=== PATIENT | male | born 1990 | race Two or more races ===

== ENCOUNTER 2018-01-12 16:23 | Emergency (ER) | payer OTHER ==
[2018-01-12 16:28] VITALS: BP 118/70; PULSE 65; TEMP 98.5; BMI 27.1
--- NOTE | 2018-01-12 16:28 | PDOC ---
Rapid Medical Evaluation Chief Complaint: Pain Time Seen by Provider: 01/12/18 16:25 Medical Evaluation: Allergies Allergy/AdvReac Type Severity Reaction Status Date / Time ceftriaxone sodium Allergy Intermediate Rash Verified 10/28/13 23:18 [From Rocephin] 01/12/18 16:25 I have performed a brief in-person evaluation of this patient. The patient presents with a chief complaint of:intermittent abd pain since wednesday , nausea and diarrhea today neg fever Pertinent physical exam findings: mid abd TTP I have ordered the following:none The patient will proceed to the ED for further evaluation.
[2018-01-12] MEDS ORDERED: RANITIDINE HCL 150 MG TABLET (FP) PO ONE (17:42)
[2018-01-12] MEDS ORDERED: MAG HYDROX/AL HYDROX/SIMETH 30 ML UNIT-DOSE CUP PO ONE (17:43)
[2018-01-12] MEDS ORDERED: SUCRALFATE 1 GM TABLET (FP) ONE (17:49)
[2018-01-12] MEDS ORDERED: MAG HYDROX/AL HYDROX/SIMETH 30 ML UNIT-DOSE CUP ONE (17:49)
[2018-01-12] MEDS ORDERED: SUCRALFATE 1 GM TABLET (FP) PO ONE ×2 (17:51→22:00)
--- NOTE | 2018-01-12 17:58 | PDOC ---
History of Present Illness - General Chief Complaint: Pain Stated Complaint: STOMACH PAIN Time Seen by Provider: 01/12/18 16:25 History Source: Patient - History of Present Illness Timing/Duration: reports: getting worse Abdominal Pain Onset Location: reports: epigastric Past History - Past Medical History Allergies/Adverse Reactions: Allergies Allergy/AdvReac Type Severity Reaction Status Date / Time ceftriaxone sodium Allergy Intermediate Rash Verified 01/12/18 16:27 [From Rocephin] Home Medications: Ambulatory Orders Famotidine [Pepcid] 20 mg PO BID #60 tablet 01/12/18 Famotidine [Pepcid] 20 mg PO DAILY #14 tablet 01/12/18 Mag Hydrox/Al Hydrox/Simeth [Mylanta Suspension -] 30 ml PO Q6H #1 bottle COPD: No CHF: No DVT: No Dementia: No GI Disorders: Yes (gastritis) - Immunization History Immunization Up to Date: Yes - Suicide/Smoking/Psychosocial Hx Smoking Status: No Smoking History: Never smoked Number of Cigarettes Smoked Daily: 0 Information on smoking cessation initiated: No Hx Alcohol Use: No Drug/Substance Use Hx: No Substance Use Type: None Review of Systems - Review of Systems Constitutional: No: Chills ABD/GI: No: Blood Streaked Bowels, Diarrhea, Nausea, Rectal Bleeding, Vomiting : No: Dysuria *Physical Exam - Vital Signs Last Vital Signs Temp Pulse Resp BP Pulse Ox 98.5 F 65 17 118/70 100 01/12/18 16:25 01/12/18 16:25 01/12/18 16:25 01/12/18 16:25 01/12/18 16:25 - Physical Exam General Appearance: Yes: Appropriately Dressed. No: Apparent Distress HEENT: positive: Normal Voice Neck: positive: Supple Respiratory/Chest: positive: Lungs Clear, Normal Breath Sounds. negative: Respiratory Distress Cardiovascular: positive: Regular Rate, S1, S2 Gastrointestinal/Abdominal: positive: Normal Bowel Sounds, Tender (to epigastium , NT over RUQ/RLQ), Soft. negative: Distended, Guarding, Rebound Musculoskeletal: negative: CVA Tenderness Integumentary: positive: Dry, Warm Neurologic: positive: Fully Oriented, Alert, Normal Mood/Affect Medical Decision Making - Medical Decision Making 01/12/18 17:54 27-year-old male, endorses history of gastritis as a teenager, not currently on meds and no history of endoscopy, here with epigastric discomfort with dysphagia that has been intermittent for 6 months, appears to worsen with greasy food per patient. Decided to come in today because symptoms appeared to worsen last night. pain currently 6/10. No nausea, vomiting, changes to bowel movements, melena or hematochezia. No significant alcohol intake. No frequent NSAID use. Nonsmoker See exam Gastritis/GERD, no RF for pancreatitis and unlikely biliary source Stable and well luis w/ minimal ttp to epigastrium -GI cocktail -reassess -anticipate dc w/ GI f/u for possible scope 01/12/18 18:48 Pt reports resolution of symptoms w/ meds and requesting discharge. Able to bob po. Prescriptions given. States he is due to see a new primary care physician in 2 weeks and will get referral for GI doctor for possible endoscopy. *DC/Admit/Observation/Transfer Diagnosis at time of Disposition: Epigastric pain - Discharge Dispostion Disposition: HOME Condition at time of disposition: Improved - Prescriptions Prescriptions: Famotidine [Pepcid] 20 mg PO DAILY #14 tablet Famotidine [Pepcid] 20 mg PO BID #60 tablet Mag Hydrox/Al Hydrox/Simeth [Mylanta Suspension -] 30 ml PO Q6H #1 bottle - Referrals - Patient Instructions Printed Discharge Instructions: Gastritis Additional Instructions: You were treated for gastritis/GERD. Take medications as prescribed. Please follow-up with your PMD in 2 weeks for GI referral for possible endoscopy. Return to ER for worsening of symptoms - Post Discharge Activity
== END 2018-01-12 19:06 | disposition home or self-care (01) ==
LOC: JER 16:23
DX: R10.13 Epigastric pain (principal)
CPT/HCPCS: 99282-25

== ENCOUNTER 2018-10-24 20:56 | Emergency (ER) | payer OTHER ==
[2018-10-24 21:04] VITALS: BP 113/65; PULSE 68; TEMP 98.5; BMI 28.0
--- NOTE | 2018-10-24 21:05 | PDOC ---
Rapid Medical Evaluation Chief Complaint: Injury Time Seen by Provider: 10/24/18 21:01 Medical Evaluation: Allergies Allergy/AdvReac Type Severity Reaction Status Date / Time ceftriaxone sodium Allergy Intermediate Rash Verified 01/12/18 16:27 [From Rocephin] 10/24/18 21:03 I have performed a brief in-person evaluation of this patient. The patient presents with a chief complaint of: pain to base of RT thumb s/p collision with another player during baseball game an hour ago. report increased pain when he bends right thumb Pertinent physical exam findings: mild swelling to right thumb. moderate TTP on MCP of right thumb. no visible deformity. I have ordered the following: RT thumb and hand x-ray The patient will proceed to the ED for further evaluation Discharge Disposition - Diagnosis Injury of right thumb Qualifiers: Encounter type: initial encounter Qualified Code(s): S69.91XA - Unspecified injury of right wrist, hand and finger(s), initial encounter - Discharge Dispostion Condition at time of disposition: Stable - Referrals - Patient Instructions - Post Discharge Activity
[2018-10-24] MEDS ORDERED: IBUPROFEN 600 MG TABLET (FP) PO ONE ×2 (21:49→21:53)
--- NOTE | 2018-10-24 21:49 | PDOC ---
History of Present Illness - General Chief Complaint: Injury Stated Complaint: XRYA RIGHT ARM Time Seen by Provider: 10/24/18 21:01 - History of Present Illness Initial Comments: 10/24/18 21:20 CHIEF COMPLAINT: finger injury HISTORY OF PRESENT ILLNESS: 28 yo M with no PMH presents to fast track with pain to R thumb s/p baseball injury. 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 PAST MEDICAL HISTORY: Denies past medical history FAMILY HISTORY: Denies SOCIAL HISTORY: Denies tobacco, alcohol, illicit drug use. SURGICAL HISTORY: Denies ALLERGIES: ceftriaxone REVIEW OF SYSTEMS General/Constitutional: Denies fever or chills. Denies weakness, weight change. HEENT: Denies change in vision. Denies ear pain or discharge. Denies sore throat. Cardiovascular: Denies chest pain or shortness of breath. Respiratory: Denies cough, wheezing, or hemoptysis. Gastrointestinal: Denies nausea, vomiting, diarrhea or constipation. Denies rectal bleeding. Genitourinary: Denies dysuria, frequency, or change in urination. Musculoskeletal: Denies joint or muscle swelling or pain. Denies neck or back pain. Skin and breasts: Denies rash or easy bruising. Neurologic: Denies headache, vertigo, loss of consciousness, or loss of sensation. Psychiatric: Denies depression or anxiety. Endocrine: Denies increased thirst. Denies abnormal weight change. Hematologic/Lymphatic: Denies anemia, easy bleeding, or history of blood clots. Allergic/Immunologic: Denies hives or skin allergy. Denies latex allergy. PHYSICAL EXAM General Appearance: Well-appearing, appropriately dressed. No apparent distress , no intoxication. HEENT: EOMI, PERRLA, normal ENT inspection, normal voice, TMs normal, pharynx normal. No conjunctival pallor. No photophobia, scleral icterus. Neck: Supple. Trachea midline. No tenderness, rigidity, carotid bruit, stridor , lymphadenopathy, or thyromegaly. Respiratory/Chest: Lungs CTAB. No shortness of breath, chest tenderness, respiratory distress, accessory muscle use. No crackles, rales, rhonchi, stridor , wheezing, dullness Cardiovascular: RRR. S1, S2. No JVD, murmur, bradycardia, tachycardia. Vascular Pulses: Dorsalis-Pedis (R): 2+, Dorsalis-Pedis (L): 2+ Gastrointestinal/Abdominal: Normal bowel sounds. Abdomen soft, non-distended. No tenderness or rebound tenderness. No organomegaly, pulsatile mass, guarding , hernia, hepatomegaly, splenomegaly. Lymphatic: No adenopathy, tenderness. Musculoskeletal/Extremities: Normal inspection. FROM of all extremities, normal capillary refill. Pelvis Stable. No CVA tenderness. No tenderness to extremities, pedal edema, swelling, erythema or deformity. Integumentary: Appropriate color, dry, warm. No cyanosis, erythema, jaundice or rash Neurologic: zyglo inspector II-XII intact. Fully oriented, alert. Appropriate mood/affect. Motor strength 5/5. No appreciable EOM palsy, facial droop or sensory deficit. Past History - Past Medical History Allergies/Adverse Reactions: Allergies Allergy/AdvReac Type Severity Reaction Status Date / Time ceftriaxone sodium Allergy Intermediate Rash Verified 10/24/18 21:04 [From Rocephin] Home Medications: Ambulatory Orders Famotidine [Pepcid] 20 mg PO BID #60 tablet 01/12/18 Famotidine [Pepcid] 20 mg PO DAILY #14 tablet 01/12/18 Mag Hydrox/Al Hydrox/Simeth [Mylanta Suspension -] 30 ml PO Q6H #1 bottle Ibuprofen 600 mg PO QID #30 tablet 10/24/18 COPD: No CHF: No DVT: No Dementia: No GI Disorders: Yes (gastritis) - Immunization History Immunization Up to Date: Yes - Suicide/Smoking/Psychosocial Hx Smoking Status: No Smoking History: Never smoked Number of Cigarettes Smoked Daily: 0 Hx Alcohol Use: No Drug/Substance Use Hx: No Substance Use Type: None *Physical Exam - Vital Signs Last Vital Signs Temp Pulse Resp BP Pulse Ox 98.5 F 68 18 113/65 99 10/24/18 21:01 10/24/18 21:01 10/24/18 21:01 10/24/18 21:01 10/24/18 21:01 *DC/Admit/Observation/Transfer Diagnosis at time of Disposition: Injury of right thumb Qualifiers: Encounter type: initial encounter Qualified Code(s): S69.91XA - Unspecified injury of right wrist, hand and finger(s), initial encounter Jammed interphalangeal joint of finger of right hand Qualifiers: Encounter type: initial encounter Qualified Code(s): S69.91XA - Unspecified injury of right wrist, hand and finger(s), initial encounter - Discharge Dispostion Disposition: HOME Condition at time of disposition: Stable Decision to Admit order: No - Prescriptions Prescriptions: Ibuprofen 600 mg PO QID #30 tablet - Referrals Referrals: Celestine Barnett MD [Staff Physician] - - Patient Instructions Printed Discharge Instructions: DI for Finger Sprain Additional Instructions: Take medications as prescribed. Follow up with orthopedics if symptoms persist past 1 week. If you develop any new or worsening symptoms, please return to the ER. - Post Discharge Activity
== END 2018-10-24 21:55 | disposition home or self-care (01) ==
LOC: JERFT 20:56
DX: S63.681A Other sprain of right thumb, initial encounter (principal); W51.XXXA Accidental striking against or bumped into by another person, initial encounter; Y93.64 Activity, baseball; Y92.320 Baseball field as the place of occurrence of the external cause; Y99.8 Other external cause status
CPT/HCPCS: 73130-TC-RT-FY; 73140-TC-RT-FY; 99281-25

== ENCOUNTER 2019-05-26 16:05 | Emergency (ER) | payer OTHER ==
[2019-05-26 16:17] VITALS: BP 116/71; PULSE 60; TEMP 97.9; BMI 27.1
[2019-05-26] MEDS ORDERED: SODIUM CHLORIDE 1,000 ML IV STA (16:32)
[2019-05-26] MEDS ORDERED: FAMOTIDINE 20 MG/50 ML IVPB 20 MG/50 ML MG IVPB ONE (16:32)
[2019-05-26] MEDS ORDERED: METOCLOPRAMIDE HCL INJECTION 10 MG/2 ML VIAL IVPB ONE (16:32)
--- NOTE | 2019-05-26 16:38 | PDOC ---
History of Present Illness - General Chief Complaint: Pain, Acute Stated Complaint: ABD PAIN Time Seen by Provider: 05/26/19 16:23 History Source: Patient Exam Limitations: Clinical Condition - History of Present Illness Initial Comments: 05/26/19 16:35 Patient with past medical history of gastritis presented with complaint of one- week history of worsening epigastric pain no improvement [id number] Maalox or Tums. Patient reported increased pain to epigastric region with food. Reported nausea but denies vomiting. Patient reported 1 episode of loose stool today. Denies fever, chills, body aches, sore throat, weakness, cough, congestion. Denies any other symptoms Is this a multiple visit Asthma Patient?: No Timing/Duration: 1 week Past History - Past Medical History Allergies/Adverse Reactions: Allergies Allergy/AdvReac Type Severity Reaction Status Date / Time ceftriaxone sodium Allergy Intermediate Rash Verified 05/26/19 16:14 [From Rocephin] Home Medications: Ambulatory Orders Ondansetron [Zofran *Odt*] 4 mg SL Q8H PRN #12 od.tablet 05/26/19 Pantoprazole Sodium [Protonix -] 40 mg PO DAILY #10 tablet.ec 05/26/19 COPD: No CHF: No DVT: No Dementia: No GI Disorders: Yes (gastritis) - Immunization History Immunization Up to Date: Yes - Psycho Social/Smoking Cessation Hx Smoking Status: No Smoking History: Never smoked Number of Cigarettes Smoked Daily: 0 Hx Alcohol Use: No Drug/Substance Use Hx: No Substance Use Type: None Review of Systems - Review of Systems Able to Perform ROS?: Yes Is the patient limited Jamaican proficient: No Constitutional: No: Chills, Fever, Malaise HEENTM: No: Symptoms Reported, See HPI, Eye Pain, Blurred Vision, Tearing, Recent change in vision, Double Vision, Cataracts, Ear Pain, Ocular Prothesis, Ear Discharge, Nose Pain, Nose Congestion, Tinnitus, Nose Bleeding, Hearing Loss , Throat Pain, Throat Swelling, Mouth Pain, Dental Problems, Difficulty Swallowing, Mouth Swelling, Other Respiratory: No: Symptoms reported, See HPI, Cough, Orthopnea, Shortness of Breath, SOB with Exertion, SOB at Rest, Stridor, Wheezing, Productive cough, Hemoptysis, Other Cardiac (ROS): No: Symptoms Reported, See HPI, Chest Pain, Edema, Irregular Heart Rate, Lightheadedness, Palpitations, Syncope, Chest Tightness, Other ABD/GI: Yes: Symptoms Reported, See HPI, Nausea, Abdominal cramping (epigastric pain). No: Abd. Pain w/ defecation, Blood Streaked Bowels, Constipated, Diarrhea, Difficulty Swallowing, Poor Appetite, Poor Fluid Intake, Rectal Bleeding, Vomiting, Indigestion : No: Symptoms Reported Musculoskeletal: No: Symptoms Reported Integumentary: No: Symptoms Reported Neurological: No: Symptoms reported All Other Systems: Reviewed and Negative *Physical Exam - Vital Signs Last Vital Signs Temp Pulse Resp BP Pulse Ox 97.9 F 60 18 116/71 99 05/26/19 16:15 05/26/19 16:15 05/26/19 16:15 05/26/19 16:15 05/26/19 16:15 - Physical Exam 05/26/19 16:38 GENERAL: Well developed, well nourished. Awake and alert. No acute distress. HEENT: Normocephalic, atraumatic. PERRLA, EOMI. No conjunctival pallor. Sclera are non-icteric. Moist mucous membranes. Oropharynx is clear. NECK: Supple. Full ROM. CARDIOVASCULAR: Regular rate and rhythm. No murmurs, rubs, or gallops. Distal pulses are 2+ and symmetric. PULMONARY: No evidence of respiratory distress. Lungs clear to auscultation bilaterally. No wheezing, rales or rhonchi. ABDOMINAL: Soft. Mild epigastric tenderness. Non-distended. No rebound or guarding. No organomegaly. Normoactive bowel sounds. MUSCULOSKELETAL Normal range of motion at all joints. SKIN: Warm and dry. Normal capillary refill. No rashes. No jaundice. No cyanosis NEUROLOGICAL: Alert, awake, appropriate. Gait is normal without ataxia. PSYCHIATRIC: Cooperative. Good eye contact. Appropriate mood General Appearance: Yes: Nourished, Appropriately Dressed, Mild Distress ED Treatment Course - LABORATORY CBC & Chemistry Diagram: 05/26/19 16:39 05/26/19 16:39 Medical Decision Making - Medical Decision Making 05/26/19 16:36 Patient with past medical history of gastritis presented with complaint of one- week history of worsening epigastric pain no improvement [id number] Maalox or Tums. Patient reported increased pain to epigastric region with food. Reported nausea but denies vomiting. Patient reported 1 episode of loose stool today. Denies fever, chills, body aches, sore throat, weakness, cough, congestion. Denies any other symptoms Exam significant for moderate epigastric tenderness without guarding or rebound. Normal bowel sounds diffusely. Patient afebrile and in no acute distress. Symptoms likely gastritis flareup versus less likely cholecystitis. CBC, CMP and lipase lab ordered to rule out bacteremia. IV hydration with 1 L normal saline ordered. Pepcid 20 mg IV and Reglan 10 mg IV ordered for gastritis. Treat based on lab results 05/26/19 18:05 CBC and chemistry lab unremarkable. Patient reported complete resolve her symptoms after IV Reglan and Pepcid. Patient symptoms likely gastritis flareup and stable for outpatient management on Pepcid 40 mg daily for gastritis and Zofran PRN for nausea with GI follow-up Discharge - Discharge Information Problems reviewed: Yes Clinical Impression/Diagnosis: Epigastric pain Gastritis Qualifiers: Gastritis type: unspecified gastritis Chronicity: acute Gastritis bleeding: without bleeding Qualified Code(s): K29.00 - Acute gastritis without bleeding Condition: Improved Disposition: HOME - Admission No - Additional Discharge Information Prescriptions: Ondansetron [Zofran *Odt*] 4 mg SL Q8H PRN #12 od.tablet PRN Reason: nausea Pantoprazole Sodium [Protonix -] 40 mg PO DAILY #10 tablet.ec - Follow up/Referral - Patient Discharge Instructions Patient Printed Discharge Instructions: DI for Gastritis Additional Instructions: Your blood work is normal. Your symptoms likely caused by gastritis flareup. Take prescribed medication as prescribed for gastritis and nausea. Follow-up with your primary care as scheduled - Post Discharge Activity
[2019-05-26 17:17] LABS: BASO % 0.5 % (0-2.0); EOS % 3.3 % (0-4.5); HEMATOCRIT 40.1 % (35.4-49); HEMOGLOBIN 13.9 GM/dL (11.7-16.9); LYMPH % 22.9 % (8-40); MCH 30.6 pg (25.7-33.7); MCHC 34.8 g/dl (32.0-35.9); MEAN CELL VOLUME 87.8 fl (80-96); MEAN PLT VOLUME 9.3 fl (7.5-11.1); NEUT % 66.3 % (42.8-82.8); PLATELET COUNT 197 K/MM3 (134-434); RBC 4.56 M/mm3 (4.00-5.60); RDW 12.8 % (11.9-15.9)
[2019-05-26 17:46] LABS: BILIRUBIN,TOTAL 0.8 mg/dL (0.2-1); CALCIUM 9.1 mg/dL (8.5-10.1); CREATININE 1.2 mg/dL (0.55-1.3); TOT PROT 7.6 g/dl (6.4-8.2)
== END 2019-05-26 18:20 | disposition home or self-care (01) ==
LOC: JERFT 16:05
PROC: 3E033GC Introduction of Other Therapeutic Substance into Peripheral Vein, Percutaneous Approach (ICD-10-PCS; principal; 2019-05-26)
PROC: 3E033GC Introduction of Other Therapeutic Substance into Peripheral Vein, Percutaneous Approach (ICD-10-PCS; 2019-05-26)
DX: K29.00 Acute gastritis without bleeding (principal)
CPT/HCPCS: 36415; 80053; 83690; 85025; 99284-25; J7030

== ENCOUNTER 2020-07-30 12:18 | Emergency (ER) | payer OTHER ==
[2020-07-30 12:28] VITALS: BP 150/90; PULSE 60; TEMP 98.5; BMI 28.5
[2020-07-30] MEDS ORDERED: KETOROLAC TROMETHAMINE 60 MG/2 ML VIAL IM ONE (13:10)
[2020-07-30] MEDS ORDERED: KETOROLAC TROMETHAMINE 60 MG/2 ML VIAL ONE (13:12)
== END 2020-07-30 13:49 | disposition home or self-care (01) ==
LOC: JERFT 12:18
PROC: 3E0233Z Introduction of Anti-inflammatory into Muscle, Percutaneous Approach (ICD-10-PCS; principal; 2020-07-30)
DX: M79.602 Pain in left arm (principal)
CPT/HCPCS: 99284-25

== ENCOUNTER 2020-11-02 20:29 | Emergency (ER) | payer OTHER ==
[2020-11-02 20:43] VITALS: TEMP 98.6; BMI 29.8
[2020-11-02] MEDS ORDERED: ONDANSETRON 4 MG/2 ML VIAL IVPUSH ONE (21:09)
[2020-11-02] MEDS ORDERED: FAMOTIDINE 20 MG/50 ML IVPB 20 MG/50 ML MG IVPB ONE ×2 (21:09→21:14)
[2020-11-02] MEDS ORDERED: MAG HYDROX/AL HYDROX/SIMETH 30 ML UNIT-DOSE CUP PO ONE (21:09)
[2020-11-02] MEDS ORDERED: SODIUM CHLORIDE 0.9% 500 ML INFUS.BAG IV ONE (21:09)
[2020-11-02] MEDS ORDERED: ONDANSETRON 4 MG/2 ML VIAL ONE (21:14)
[2020-11-02] MEDS ORDERED: MAG HYDROX/AL HYDROX/SIMETH 30 ML UNIT-DOSE CUP ONE (21:14)
[2020-11-02 21:53] LABS: BASO % 0.6 % (0-2.0); EOS % 7.8 % (0-4.5); HEMATOCRIT 39.9 % (35.4-49); HEMOGLOBIN 13.7 GM/dL (11.7-16.9); LYMPH % 28.7 % (8-40); MCH 29.8 pg (25.7-33.7); MCHC 34.4 g/dl (32.0-35.9); MEAN CELL VOLUME 86.7 fl (80-96); MEAN PLT VOLUME 8.9 fl (7.5-11.1); MONO % 10.1 % (3.8-10.2); NEUT % 52.8 % (42.8-82.8); PLATELET COUNT 221 10^3/uL (134-434); RBC 4.61 M/mm3 (4.00-5.60); WHITE BLOOD COUNT 5.9 K/mm3 (4.0-10.0)
[2020-11-02] MEDS ORDERED: ACETAMINOPHEN 1000 MG/100 ML VIAL (NON FORMULARY) IVPB ONE (21:55)
[2020-11-02 22:10] LABS: CALCIUM 8.8 mg/dL (8.5-10.1)
[2020-11-02 22:11] LABS: BLOOD UREA NITROGEN 13.5 mg/dL (7-18)
[2020-11-02 22:14] LABS: CREATININE 1.1 mg/dL (0.55-1.3)
[2020-11-02 22:15] LABS: TOT PROT 7.2 g/dl (6.4-8.2)
[2020-11-02 22:16] LABS: BILIRUBIN,TOTAL 0.5 mg/dL (0.2-1)
[2020-11-02] MEDS ORDERED: ACETAMINOPHEN INJECTION 100 ML IVPB ONE (22:17)
[2020-11-02 23:07] VITALS: BP 124/68; PULSE 80
== END 2020-11-02 23:07 | disposition home or self-care (01) ==
LOC: JER 20:29
PROC: 3E033NZ Introduction of Analgesics, Hypnotics, Sedatives into Peripheral Vein, Percutaneous Approach (ICD-10-PCS; principal; 2020-11-02)
PROC: 3E033GC Introduction of Other Therapeutic Substance into Peripheral Vein, Percutaneous Approach (ICD-10-PCS; 2020-11-02)
PROC: 3E033GC Introduction of Other Therapeutic Substance into Peripheral Vein, Percutaneous Approach (ICD-10-PCS; 2020-11-02)
DX: R10.13 Epigastric pain (principal)
CPT/HCPCS: 36415; 80053; 83690; 85025; 99284-25; J0131

== ENCOUNTER 2021-06-16 09:02 | Emergency (ER) | payer OTHER ==
[2021-06-16 09:08] VITALS: BP 112/72; PULSE 61; TEMP 98; BMI 28.5
[2021-06-16] MEDS ORDERED: SODIUM CHLORIDE 0.9% 500 ML INFUS.BAG IV ONE (09:43)
[2021-06-16] MEDS ORDERED: ONDANSETRON 4 MG/2 ML VIAL IVPUSH ONE (09:44)
[2021-06-16] MEDS ORDERED: FAMOTIDINE 20 MG/50 ML IVPB 20 MG/50 ML MG IVPB ONE ×2 (09:44→10:16)
[2021-06-16] MEDS ORDERED: ONDANSETRON 4 MG/2 ML VIAL ONE (10:16)
[2021-06-16 10:39] LABS: BASO % 0.3 % (0-2.0); EOS % 8.5 % (0-4.5); HEMATOCRIT 43.1 % (35.4-49); HEMOGLOBIN 14.5 GM/dL (11.7-16.9); MCH 29.7 pg (25.7-33.7); MCHC 33.7 g/dl (32.0-35.9); MEAN CELL VOLUME 88.2 fl (80-96); MONO % 14.2 % (3.8-10.2); PLATELET COUNT 195 10^3/uL (134-434); RBC 4.89 M/mm3 (4.00-5.60); RDW 13.3 % (11.9-15.9); WHITE BLOOD COUNT 3.3 K/mm3 (4.0-10.0)
[2021-06-16 11:04] LABS: BLOOD UREA NITROGEN 15.1 mg/dL (7-18)
[2021-06-16 11:05] LABS: CALCIUM 8.9 mg/dL (8.5-10.1)
[2021-06-16 11:08] LABS: CREATININE 1.1 mg/dL (0.55-1.3)
[2021-06-16 11:10] LABS: BILIRUBIN,TOTAL 0.4 mg/dL (0.2-1); TOT PROT 7.4 g/dl (6.4-8.2)
== END 2021-06-16 12:14 | disposition home or self-care (01) ==
LOC: JER 09:02
PROC: 3E033GC Introduction of Other Therapeutic Substance into Peripheral Vein, Percutaneous Approach (ICD-10-PCS; principal; 2021-06-16)
PROC: 3E033GC Introduction of Other Therapeutic Substance into Peripheral Vein, Percutaneous Approach (ICD-10-PCS; 2021-06-16)
DX: R11.0 Nausea (principal); R19.7 Diarrhea, unspecified
CPT/HCPCS: 36415; 80053; 83690; 85025; 96374; 96375; 99284-25

== ENCOUNTER 2022-01-26 19:44 | Emergency (ER) | payer OTHER ==
[2022-01-26 19:54] VITALS: BP 121/74; PULSE 66; RESP 18; TEMP 98.7; BMI 29.1
[2022-01-26] MEDS ORDERED: IBUPROFEN 600 MG TABLET (FP) PO ONE ×2 (21:10→21:19)
== END 2022-01-26 21:44 | disposition home or self-care (01) ==
LOC: JERFT 19:44
DX: S93.601A Unspecified sprain of right foot, initial encounter (principal); X50.0XXA Overexertion from strenuous movement or load, initial encounter; Y93.67 Activity, basketball
CPT/HCPCS: 73630-TC-RT-FY; 99283-25

== ENCOUNTER 2022-02-06 08:27 | Emergency (ER) | payer OTHER ==
[2022-02-06 09:16] VITALS: BP 119/71; PULSE 64; RESP 17; TEMP 97.7; BMI 29.4
[2022-02-06] MEDS ORDERED: DEXAMETHASONE LIQUID 0.5 MG/5 ML PO ONE (09:47)
[2022-02-06] MEDS ORDERED: DEXAMETHASONE SOD PHOSPHATE 10 MG/1 ML VIAL ONE (10:33)
[2022-02-06 10:44] LABS: THROAT:GRP A STREP NOT DETECTED (NOTDETECTED)
== END 2022-02-06 11:37 | disposition home or self-care (01) ==
LOC: JER 08:27
DX: J01.00 Acute maxillary sinusitis, unspecified (principal)
CPT/HCPCS: 0241U-QW; 71046-TC-FY; 87651; 99284-25

== ENCOUNTER 2022-03-08 09:55 | Emergency (ER) | payer OTHER ==
[2022-03-08 10:19] VITALS: BP 130/70; PULSE 64; RESP 16; TEMP 98.6; BMI 29.4
== END 2022-03-08 10:20 | disposition home or self-care (01) ==
LOC: FER 09:55
DX: U07.1 COVID-19 (principal)
CPT/HCPCS: 0241U-QW; 99283-25

== ENCOUNTER 2022-05-04 21:53 | Emergency (ER) | payer OTHER ==
[2022-05-04 22:00] VITALS: BP 137/69; PULSE 60; RESP 18; TEMP 97.6; BMI 28.5
[2022-05-04] MEDS ORDERED: diphenhydrAMINE HCL 25 MG CAPSULE (FP) PO ONE ×2 (22:07→22:18)
[2022-05-04] MEDS ORDERED: predniSONE 20 MG TABLET (UD) PO ONE (22:12)
[2022-05-04] MEDS ORDERED: predniSONE 20 MG TABLET (UD) ONE (22:18)
[2022-05-04] MEDS ORDERED: FAMOTIDINE 20 MG TABLET PO ONE (22:20)
[2022-05-04] MEDS ORDERED: FAMOTIDINE 20 MG TABLET ONE (22:28)
== END 2022-05-05 01:32 | disposition home or self-care (01) ==
LOC: JER 21:53
DX: T78.3XXA Angioneurotic edema, initial encounter (principal)
CPT/HCPCS: 99283-25

== ENCOUNTER 2022-05-06 14:49 | Observation (INO) | payer OTHER ==
[2022-05-06] MEDS ORDERED: diphenhydrAMINE HCL 25 MG CAPSULE (FP) PO ONE ×2 (15:51→16:20)
[2022-05-06] MEDS ORDERED: DEXAMETHASONE 4 MG TABLET (FP) PO ONE (15:52)
[2022-05-06] MEDS ORDERED: FAMOTIDINE 20 MG TABLET PO ONE (15:52)
[2022-05-06] MEDS ORDERED: SODIUM CHLORIDE 0.9% 500 ML INFUS.BAG IV ONE (15:52)
[2022-05-06] MEDS ORDERED: FAMOTIDINE 20 MG TABLET ONE (16:20)
[2022-05-06] MEDS ORDERED: DEXAMETHASONE 4 MG TABLET (FP) ONE (16:20)
[2022-05-06 21:06] LABS: BASO % 0.1 % (0-2.0); EOS % 3.9 % (0-4.5); HEMATOCRIT 42.8 % (35.4-49); HEMOGLOBIN 14.2 GM/dL (11.7-16.9); LYMPH % 10.9 % (8-40); MCH 29.3 pg (25.7-33.7); MCHC 33.1 g/dl (32.0-35.9); MEAN CELL VOLUME 88.3 fl (80-96); MEAN PLT VOLUME 9.3 fl (7.5-11.1); MONO % 1.8 % (3.8-10.2); NEUT % 83.3 % (42.8-82.8); PLATELET COUNT 225 10^3/uL (134-434); RBC 4.85 M/mm3 (4.00-5.60); RDW 13.8 % (11.9-15.9); WHITE BLOOD COUNT 7.6 K/mm3 (4.0-10.0)
[2022-05-06 21:30] LABS: ALBUMIN 3.9 g/dl (3.4-5.0); BLOOD UREA NITROGEN 15.6 mg/dL (7-18); CALCIUM 8.9 mg/dL (8.5-10.1)
[2022-05-06 21:33] LABS: CREATININE 1.2 mg/dL (0.55-1.3)
[2022-05-06 21:35] LABS: BILIRUBIN,TOTAL 0.4 mg/dL (0.2-1); TOT PROT 7.2 g/dl (6.4-8.2)
[2022-05-06] MEDS ORDERED: LORATADINE 10 MG TABLET PO ONE (23:18)
[2022-05-07 00:13] VITALS: RESP 18; BMI 28.3
[2022-05-07] MEDS: ENOXAPARIN NA (PORCINE) 40 MG/0.4 ML DISP.SYRIN SQ SCH ×2 (09:30→09:36)
[2022-05-07 09:33] LABS: EOS % 0.2 % (0-4.5); HEMATOCRIT 40.1 % (35.4-49); HEMOGLOBIN 13.4 GM/dL (11.7-16.9); LYMPH % 9.5 % (8-40); MCH 29.2 pg (25.7-33.7); MCHC 33.5 g/dl (32.0-35.9); MEAN CELL VOLUME 87.4 fl (80-96); MEAN PLT VOLUME 9.5 fl (7.5-11.1); MONO % 5.1 % (3.8-10.2); NEUT % 85.2 % (42.8-82.8); PLATELET COUNT 214 10^3/uL (134-434); RBC 4.59 M/mm3 (4.00-5.60); RDW 13.7 % (11.9-15.9); WHITE BLOOD COUNT 11.3 K/mm3 (4.0-10.0)
[2022-05-07 09:51] LABS: CALCIUM 8.8 mg/dL (8.5-10.1)
[2022-05-07 09:52] LABS: ALBUMIN 3.6 g/dl (3.4-5.0)
[2022-05-07 09:54] LABS: CREATININE 1.1 mg/dL (0.55-1.3); PHOSPHOROUS 3.4 mg/dL (2.5-4.9)
[2022-05-07 09:56] LABS: BILIRUBIN,TOTAL 0.4 mg/dL (0.2-1); TOT PROT 6.7 g/dl (6.4-8.2)
[2022-05-07] MEDS ORDERED: predniSONE 20 MG TABLET (UD) PO SCH (10:00)
[2022-05-07] MEDS ORDERED: FAMOTIDINE 20 MG TABLET PO SCH (10:00)
[2022-05-07 14:50] VITALS: BP 126/67; PULSE 71; TEMP 97.9
[2022-05-07] MEDS ORDERED: LORATADINE 10 MG TABLET PO SCH ×2 (22:00→23:10)
== END 2022-05-07 15:19 | disposition home or self-care (01) ==
LOC: JER 14:49 → JERBED 19:44 → J8W 23:02
PROVIDERS: ADMIT Internal Medicine; ATTEND Nurse Practitioner Acute Care
PROC: 3E0337Z Introduction of Electrolytic and Water Balance Substance into Peripheral Vein, Percutaneous Approach (ICD-10-PCS; principal; 2022-05-06)
DX: T78.3XXA Angioneurotic edema, initial encounter (principal); K29.70 Gastritis, unspecified, without bleeding; Z29.8 Encounter for other specified prophylactic measures; J45.909 Unspecified asthma, uncomplicated; Z88.8 Allergy status to other drugs, medicaments and biological substances; Z91.013 Allergy to seafood
CPT/HCPCS: 0241U-QW; 36415; 80053; 83520; 83735; 84100; 85025; 93005; 93010; 99285-25; G0378

== ENCOUNTER 2022-06-23 04:57 | Day surgery (SDC) | payer OTHER ==
[2022-06-18 09:34] VITALS: BMI 29.1
[2022-06-23 14:48] VITALS: PULSE 56
[2022-06-23 15:02] VITALS: BP 110/52; RESP 18; TEMP 97.5
== END 2022-06-23 15:18 | disposition home or self-care (01) ==
LOC: JASU-ENDO 04:57
PROVIDERS: ATTEND Student in an Organized Health Care Education/Training Program
PROC: 0DB78ZX Excision of Stomach, Pylorus, Via Natural or Artificial Opening Endoscopic, Diagnostic (ICD-10-PCS; 2022-06-23)
PROC: 0DB68ZX Excision of Stomach, Via Natural or Artificial Opening Endoscopic, Diagnostic (ICD-10-PCS; 2022-06-23)
PROC: 0DB28ZX Excision of Middle Esophagus, Via Natural or Artificial Opening Endoscopic, Diagnostic (ICD-10-PCS; 2022-06-23)
PROC: 0DB48ZX Excision of Esophagogastric Junction, Via Natural or Artificial Opening Endoscopic, Diagnostic (ICD-10-PCS; 2022-06-23)
PROC: 0DB98ZX Excision of Duodenum, Via Natural or Artificial Opening Endoscopic, Diagnostic (ICD-10-PCS; principal; 2022-06-23 14:00)
DX: K29.50 Unspecified chronic gastritis without bleeding (principal); K29.80 Duodenitis without bleeding; K20.0 Eosinophilic esophagitis
CPT/HCPCS: 88305-TC; 88342-TC

== ENCOUNTER 2023-12-06 21:31 | Emergency (ER) | payer OTHER ==
[2023-12-06 21:45] VITALS: TEMP 97.8; BMI 29.8
[2023-12-06 22:47] LABS: BASO % 0.5 % (0-2.0); EOS % 9.1 % (0-4.5); HEMATOCRIT 40.3 % (35.4-49); HEMOGLOBIN 13.5 GM/dL (11.7-16.9); LYMPH % 33.5 % (8-40); MCH 29.5 pg (25.7-33.7); MCHC 33.5 g/dl (32.0-35.9); MEAN CELL VOLUME 88.2 fl (80-96); MEAN PLT VOLUME 8.9 fl (7.5-11.1); MONO % 11.9 % (3.8-10.2); PLATELET COUNT 209 10^3/uL (134-434); RBC 4.57 M/mm3 (4.00-5.60); RDW 13.1 % (11.9-15.9); WHITE BLOOD COUNT 5.5 K/mm3 (4.0-10.0)
[2023-12-06 23:11] LABS: POTASSIUM 4.1 mmol/L (3.5-5.1)
[2023-12-06 23:13] LABS: ALBUMIN 3.8 g/dl (3.4-5.0); CALCIUM 8.6 mg/dL (8.5-10.1)
[2023-12-06 23:14] LABS: BLOOD UREA NITROGEN 14.7 mg/dL (7-18)
[2023-12-06 23:17] LABS: CREATININE 1.1 mg/dL (0.55-1.3)
[2023-12-06 23:18] LABS: BILIRUBIN,TOTAL 0.4 mg/dL (0.2-1); TOT PROT 6.7 g/dl (6.4-8.2)
[2023-12-07 00:59] VITALS: BP 130/89; PULSE 65; RESP 19
== END 2023-12-07 01:01 | disposition home or self-care (01) ==
LOC: JER 21:31
DX: R07.89 Other chest pain (principal); M54.6 Pain in thoracic spine
CPT/HCPCS: 36415; 80053; 84484; 85025; 93005; 93010; 99284-25

== ENCOUNTER 2023-12-25 17:49 | Emergency (ER) | payer OTHER ==
[2023-12-25 18:09] VITALS: BP 133/81; PULSE 78; RESP 19; TEMP 97.8; BMI 29.8
[2023-12-25] MEDS: LIDOCAINE 4% PATCH TP ONE (19:01)
[2023-12-25] MEDS: ACETAMINOPHEN 500 MG TABLET (FP) PO ONE (19:02)
[2023-12-25 20:17] LABS: HIV INTERPRETATION NEGATIVE (NEGATIVE)
[2023-12-25] MEDS ORDERED: LIDOCAINE PATCH REMOVAL MC SCH (22:00)
== END 2023-12-25 19:59 | disposition home or self-care (01) ==
LOC: JERFT 17:49
DX: M62.830 Muscle spasm of back (principal)
CPT/HCPCS: 36415; 86803; 87389; 99283-25

== ENCOUNTER 2024-06-27 15:56 | Emergency (ER) | payer OTHER ==
[2024-06-27 16:26] VITALS: BP 123/72; PULSE 70; RESP 18; TEMP 98.1; BMI 29.8
== END 2024-06-27 17:13 | disposition home or self-care (01) ==
LOC: JERFT 15:56
DX: M54.50 Low back pain, unspecified (principal)
CPT/HCPCS: 99283-25

== ENCOUNTER 2024-08-07 14:26 | Emergency (ER) | payer OTHER ==
[2024-08-07 14:46] VITALS: BP 127/80; PULSE 70; RESP 18; TEMP 98.2; BMI 29.8
[2024-08-07] MEDS ORDERED: LIDOCAINE 4% PATCH TP ONE (15:28)
[2024-08-07] MEDS: LIDOCAINE 4% PATCH TP ONE (15:32)
[2024-08-07] MEDS ORDERED: LIDOCAINE PATCH REMOVAL MC SCH (22:00)
== END 2024-08-07 16:04 | disposition home or self-care (01) ==
LOC: JERFT 14:26
DX: M54.42 Lumbago with sciatica, left side (principal)
CPT/HCPCS: 99283-25